=== PATIENT | female | born 1970 | race Caucasian/White ===

== ENCOUNTER 2018-03-11 09:30 | Outpatient (RCR) | payer MEDICARE, OTHER | END 2018-04-10 | disposition home or self-care (01) | LOC: WSPT | DX: M79.10 Myalgia, unspecified site (principal) | CPT/HCPCS: G8978-GP; G8979-GP ==

== ENCOUNTER → 2020-01-17 | Outpatient (CLI) | payer MEDICARE, OTHER | LOC: ZCOL.LAB 15:21 | DX: Z20.828 Contact with and (suspected) exposure to other viral communicable diseases (principal) ==

== ENCOUNTER → 2020-01-30 | Outpatient (CLI) | payer MEDICARE, OTHER | LOC: MHCPAIN 14:15 | DX: M47.812 Spondylosis without myelopathy or radiculopathy, cervical region (principal); M54.2 Cervicalgia; R51.9 Headache, unspecified; G89.29 Other chronic pain | CPT/HCPCS: G0463 ==